=== PATIENT | male | born 1985 | race Caucasian/White ===

== ENCOUNTER 2021-02-14 15:50 | Emergency (ER) | payer BC ==
[2021-02-14] MEDS ORDERED: Sodium Chloride 0.9% 10 ML Syringe FLUSH PRN (16:22)
[2021-02-14] MEDS ORDERED: Acetaminophen 325 MG Tab PO STA (17:23)
[2021-02-14] MEDS ORDERED: Sodium Chloride 0.9% 1,000 ML IV ONE (17:36)
--- NOTE | 2021-02-14 17:43 | EDM.PDOC ---
ED HPI GENERAL MEDICAL PROBLEM - General Chief Complaint: Gastrointestinal Problem Stated Complaint: COVID + Time Seen by Provider: 02/14/21 15:58 Source of Information: Reports: Patient History Limitations: Reports: No Limitations - History of Present Illness INITIAL COMMENTS - FREE TEXT/NARRATIVE: The patient presents for rectal bleeding. The patient is COVID positive and he is here getting the monoclonal antibodies. He said this morning he had some lower abdominal cramping and then had some bloody diarrhea. He had that happen again here. He had COVID for 9 days now. He has a fever, chills, cough, shortness of breath, nausea and now diarrhea. He still has his appendix and gallbladder. Onset: Gradual Duration: Hour(s): Location: Reports: Abdomen Quality: Reports: Other (cramping) Severity: Moderate Improves with: Reports: None Worsens with: Reports: None Associated Symptoms: Reports: Chest Pain, Cough, Fever/Chills, Headaches, Nausea/Vomiting, Shortness of Breath Abdomen Pain Score (Numeric/FACES): 5 - Related Data Allergies Allergy/AdvReac Type Severity Reaction Status Date / Time tetracycline Allergy Other Verified 02/14/21 16:12 Home Meds: Home Meds Albuterol [Proventil HFA] 2 puff INH Q4H PRN #1 inhaler 02/14/21 [Rx] Escitalopram [Lexapro] 20 mg PO DAILY 02/14/21 [History] dexAMETHasone [Dexamethasone] 6 mg PO Q6H #12 tab 02/14/21 [Rx] Past Medical History - Past Health History Medical/Surgical History: Denies Medical/Surgical History - Infectious Disease History Infectious Disease History: Reports: Novel Coronavirus Social & Family History - Tobacco Use Tobacco Use Status *Q: Never Tobacco User Second Hand Smoke Exposure: No - Recreational Drug Use Recreational Drug Use: No ED ROS GENERAL - Review of Systems Review Of Systems: See Below Constitutional: Reports: Fever, Chills, Malaise, Weakness HEENT: Reports: No Symptoms Respiratory: Reports: Shortness of Breath, Cough Cardiovascular: Reports: No Symptoms Endocrine: Reports: Fatigue GI/Abdominal: Reports: Abdominal Pain, Bloody Stool, Nausea. Denies: Vomiting : Reports: No Symptoms Musculoskeletal: Reports: No Symptoms ED EXAM, GI/ABD - Physical Exam Exam: See Below Exam Limited By: No Limitations General Appearance: Alert, No Apparent Distress Ears: Normal External Exam Nose: Normal Inspection Head: Atraumatic, Normocephalic Neck: Normal Inspection Respiratory/Chest: No Respiratory Distress, Lungs Clear, Normal Breath Sounds Cardiovascular: Regular Rate, Rhythm, No Edema, No Murmur GI/Abdominal Exam: Soft, No Organomegaly, No Mass, Tender (Mild generalized tenderness) Rectal (Males) Exam: Bloody Stool Back Exam: Normal Inspection Extremities: Normal Inspection Course - Vital Signs Last Recorded V/S: Last Vital Signs Temp 97.8 F 02/14/21 17:29 Pulse 64 02/14/21 15:57 Resp 16 02/14/21 15:57 BP 115/74 02/14/21 15:57 Pulse Ox 98 02/14/21 15:57 - Orders/Labs/Meds Orders: Active Orders 24 hr Category Date Time Status Peripheral IV Care [RC] . DIRECTED Care 02/14/21 16:27 Active C DIFFICILE PCR W/REFLEX [MOLEC] Stat Lab 02/14/21 19:07 Received STOOL CULTURE/SHIGA TOXIN [MREF] Stat Lab 02/14/21 19:07 Received Sodium Chloride 0.9% [Saline Flush] Med 02/14/21 16:22 Active 10 ml FLUSH ASDIRECTED PRN Peripheral IV Insertion Adult [OM.PC] Stat Oth 02/14/21 16:22 Ordered Medication Orders Sodium Chloride (Sodium Chloride 0.9% 10 Ml Syringe) 10 ml FLUSH ASDIRECTED PRN PRN Reason: Keep Vein Open Last Admin: 02/14/21 16:40 Dose: 10 ml Documented by: IMELDA Labs: Laboratory Tests 02/14/21 02/14/21 02/14/21 Range/Units 17:00 17:00 17:00 WBC 4.91 (4.23-9.07) K/mm3 RBC 5.72 (4.63-6.08) M/mm3 Hgb 16.6 (13.7-17.5) gm/dl Hct 50.4 (40.1-51.0) % MCV 88.1 (79.0-92.2) fl MCH 29.0 (25.7-32.2) pg MCHC 32.9 (32.2-35.5) g/dl RDW Std Deviation 45.4 H (35.1-43.9) fL Plt Count 191 (163-337) K/mm3 MPV 9.5 (9.4-12.3) fl Neut % (Auto) 67.8 (34.0-67.9) % Lymph % (Auto) 23.2 (21.8-53.1) % Andrew % (Auto) 8.4 (5.3-12.2) % Eos % (Auto) 0 L (0.8-7.0) Baso % (Auto) 0.4 (0.1-1.2) % Neut # (Auto) 3.33 (1.78-5.38) K/mm3 Lymph # (Auto) 1.14 L (1.32-3.57) K/mm3 Andrew # (Auto) 0.41 (0.30-0.82) K/mm3 Eos # (Auto) 0.00 L (0.04-0.54) K/mm3 Baso # (Auto) 0.02 (0.01-0.08) K/mm3 PT 10.3 (9.7-12.0) SECONDS INR 0.93 APTT 31.2 (21.7-31.4) SECONDS Sodium 143 (136-145) mEq/L Potassium 3.7 (3.5-5.1) mEq/L Chloride 104 (98-107) mEq/L Carbon Dioxide 27 (21-32) mEq/L Anion Gap 15.7 H (5-15) BUN 12 (7-18) mg/dL Creatinine 1.1 (0.7-1.3) mg/dL Est Cr Clr Drug Dosing TNP Estimated GFR (MDRD) > 60 (>60) mL/min BUN/Creatinine Ratio 10.9 L (14-18) Glucose 91 (70-99) mg/dL Calcium 8.2 L (8.5-10.1) mg/dL Total Bilirubin 0.4 (0.2-1.0) mg/dL AST 80 H (15-37) U/L ALT 62 (16-63) U/L Alkaline Phosphatase 34 L (46-116) U/L Total Protein 7.9 (6.4-8.2) g/dl Albumin 3.5 (3.4-5.0) g/dl Globulin 4.4 gm/dL Albumin/Globulin Ratio 0.8 L (1-2) Meds: Medications Generic Name Dose Route Start Last Admin Trade Name Bubba PRN Reason Stop Dose Admin Sodium Chloride 10 ml 02/14/21 16:22 02/14/21 16:40 Sodium Chloride 0.9% 10 Ml Syringe FLUSH 10 ml ASDIRECTED PRN Administration Keep Vein Open Discontinued Medications Generic Name Dose Route Start Last Admin Trade Name Bubba PRN Reason Stop Dose Admin Acetaminophen 975 mg 02/14/21 17:23 02/14/21 17:29 Acetaminophen 325 Mg Tab PO 02/14/21 17:24 975 mg NOW STA Administration Diatrizoate Meglum/Diatrizoate Sod 90 ml 02/14/21 18:24 02/14/21 18:25 Diatrizoate Meglumine/Diatrizoate Sodium 37% 120 Ml Bottle PO 02/14/21 18:25 90 ml ONETIME ONE Administration Sodium Chloride 1,000 mls @ 1,000 mls/hr 02/14/21 17:36 02/14/21 17:55 Normal Saline IV 02/14/21 18:35 1,000 mls/hr ONETIME ONE Administration Iopamidol 100 ml 02/14/21 18:24 02/14/21 18:25 Iopamidol 612 Mg/Ml 100 Ml Bottle IVPUSH 02/14/21 18:25 100 ml ONETIME ONE Administration - Re-Assessments/Exams Free Text/Narrative Re-Assessment/Exam: 02/14/21 17:44 I ordered an IV NS 1L bolus, labs, and a CT of his abdomen and pelvis. His CBC looks good. His PT and PTT look good. His anion gap is elevated at 15.7. His AST is elevated at 80. 02/14/21 19:[address] shows diffuse increased density within both lung bases compatible with COVID pneumonia. Two small low density lesions within the liver which are too small to accurately measure but most likely are due to small cysts. Findings suspicious for mild diffuse colitis. Etiology is otherwise nonspecific. Small fat-containing partial inguinal hernias. No additional abnormality is seen on CT study of the abdomen and pelvis. The patient was able to give us a stool sample. I will check it for C-dif and culture. 02/14/21 19:19 I will get him on some steroids and discharge him home. Departure - Departure Time of Disposition: 19:20 Disposition: Home, Self-Care 01 Condition: Good Clinical Impression: COVID-19, Pneumonia due to COVID-19 virus, Colitis, Bloody stools - Discharge Information *PRESCRIPTION DRUG MONITORING PROGRAM REVIEWED*: Not Applicable *COPY OF PRESCRIPTION DRUG MONITORING REPORT IN PATIENT JAKUB: Not Applicable Prescriptions: dexAMETHasone [Dexamethasone] 6 mg PO Q6H #12 tab Albuterol [Proventil HFA] 2 puff INH Q4H PRN #1 inhaler PRN Reason: Shortness Of Breath Referrals: Pauline Franco [employer] [Primary Care Provider] - 1 Week Forms: ED Department Discharge Additional Instructions: Drink plenty of fluids. Take tylenol as needed for fever. Take the dexamethasone 1.5pills by mouth daily until gone. Use the albuterol inhaler 2 puffs every 6 hours as needed for shortness of breath. Try to lay on your stomach. That allows more of your lung tissue to get oxygenated. Please return if you are worse such as more bloody stools, oxygen saturations less then 90% consistently over a few hours, if you cannot keep anything down or for any other issues. Follow up with Pauline within a week. Sepsis Event Note (ED) - Evaluation Sepsis Screening Result: No Definite Risk - Focused Exam Vital Signs: Vital Signs Temp Temp Pulse Resp BP Pulse Ox 02/14/21 17:29 97.8 F 02/14/21 15:57 98.3 F 64 16 115/74 98 - My Orders Last 24 Hours: My Active Orders 02/14/21 16:22 Sodium Chloride 0.9% [Saline Flush] 10 ml FLUSH ASDIRECTED PRN Peripheral IV Insertion Adult [OM.PC] Stat 02/14/21 16:27 Peripheral IV Care [RC] . DIRECTED 02/14/21 19:07 C DIFFICILE PCR W/REFLEX [MOLEC] Stat STOOL CULTURE/SHIGA TOXIN [MREF] Stat - Assessment/Plan Last 24 Hours: My Active Orders 02/14/21 16:22 Sodium Chloride 0.9% [Saline Flush] 10 ml FLUSH ASDIRECTED PRN Peripheral IV Insertion Adult [OM.PC] Stat 02/14/21 16:27 Peripheral IV Care [RC] . DIRECTED 02/14/21 19:07 C DIFFICILE PCR W/REFLEX [MOLEC] Stat STOOL CULTURE/SHIGA TOXIN [MREF] Stat
[2021-02-14] MEDS ORDERED: Diatrizoate Meglumine/Diatrizoate Sodium 37% 120 ML Bottle PO ONE (18:24)
[2021-02-14] MEDS ORDERED: Iopamidol 612 MG/ML 100 ML Bottle IVPUSH ONE (18:24)
--- NOTE | 2021-02-14 18:48 | CT ---
CT abdomen and pelvis Technique: Multiple axial sections were obtained from above the dome of the diaphragm inferiorly through the pubic sepsis. Intravenous and oral contrast were utilized. Delayed images were also obtained through the abdomen and pelvis. Reconstructed coronal and sagittal images were also obtained. Comparison: No previous abdominal or pelvic imaging is available. Findings: Patchy areas of increased density are seen within both lung bases. Low density finding is seen in 2 locations within the right lobe of the liver. These are too small to accurately measure but most likely are due to cysts. Largest finding measures 1.1 cm. Spleen size is normal. Adrenal glands show no nodule. Gallbladder contains no calcified gallstones. Pancreas shows no discrete abnormality. Kidneys show symmetric contrast enhancement with no hydronephrosis or mass. Abdominal aorta shows no aneurysm. No retroperitoneal adenopathy or mesenteric abnormalities are seen. No pelvic mass or adenopathy is seen. Appendix is seen and is normal in size. Delayed images show contrast excretion into both ureters and into the bladder. Small fat-containing partial inguinal hernias are seen. There is diffuse material being seen throughout the colon. Colonic wall is felt to be slightly thickened raising the possibility of mild diffuse colitis. Bone window settings were reviewed which appear within normal limits for the patient's age. Impression: 1. Diffuse increased density within both lung bases compatible with COVID pneumonia. 2. Two small low-density lesions within the liver which are too small to accurately measure but most likely are due to small cysts. 3. Findings suspicious for mild diffuse colitis. Etiology is otherwise nonspecific. 4. Small fat-containing partial inguinal hernias. 5. No additional abnormality is seen on CT study of the abdomen and pelvis. Diagnostic code #3
== END 2021-02-14 19:40 | disposition home or self-care (01) ==
LOC: JD.ED 15:50
DX: U07.1 COVID-19 (principal); J12.82 Pneumonia due to coronavirus disease 2019; K52.9 Noninfective gastroenteritis and colitis, unspecified; Z88.1 Allergy status to other antibiotic agents
CPT/HCPCS: 36415; 74177; 80053; 85025; 85610; 85730; 87045; 87046; 87493; 87899; 99285; A9270; J7030; Q9963; Q9967

== ENCOUNTER 2022-08-03 19:34 | Observation (INO) | payer BC ==
[2022-08-03] MEDS ORDERED: Ondansetron 4 MG/2 ML SDV IVPUSH ONE (20:10)
[2022-08-03] MEDS ORDERED: Lactated Ringers 1,000 ML IV ONE ×2 (20:11→20:49)
[2022-08-03 21:12] LABS: CORONAVIRUS COVID-19 NAA NEGATIVE (NEGATIVE)
[2022-08-03] MEDS ORDERED: Pantoprazole 40 MG Vial IVPUSH ONE (21:56)
[2022-08-03] MEDS ORDERED: Famotidine 20 MG/2 ML SDV IVPUSH ONE (21:56)
[2022-08-03] MEDS ORDERED: Alum Hydrox/Mag Hydrox/Simeth 30 ML, Lidocaine 2% 15 ML PO ONE ×2 (21:57)
[2022-08-03] MEDS ORDERED: Piperacillin/Tazobactam 4.5 GM in Sodium Chloride 0.9% 100 ML IV ONE (22:12)
[2022-08-03] MEDS ORDERED: Lactated Ringers 1,000 ML IV SCH (22:45)
[2022-08-04] MEDS: Lactated Ringers 1,000 ML IV SCH ×2 (01:12→16:49)
[2022-08-04] MEDS: Acetaminophen 325 MG Tab PO PRN ×2 (04:38→15:58)
[2022-08-04] MEDS: Piperacillin/Tazobactam 4.5 GM in Sodium Chloride 0.9% 100 ML IV SCH ×3 (05:19→21:13)
[2022-08-04] MEDS: Famotidine 20 MG/2 ML SDV IVPUSH SCH ×2 (08:24→21:03)
[2022-08-04] MEDS: Pantoprazole 40 MG Vial IVPUSH SCH (08:25)
[2022-08-04] MEDS ORDERED: Pantoprazole 40 MG in Sodium Chloride 0.9% 100 ML IV SCH (09:00)
[2022-08-04] MEDS: Ibuprofen 600 MG Tab PO PRN ×2 (09:45→21:02)
[2022-08-04] MEDS ORDERED: Lactated Ringers 500 ML IV ONE ×2 (15:01→16:33)
[2022-08-04] MEDS ORDERED: Citalopram 20 MG Tab PO SCH (21:00)
[2022-08-04] MEDS: ESCITALOPRAM 20 MG PO SCH (21:03)
[2022-08-05] MEDS: Lactated Ringers 1,000 ML IV SCH ×4 (01:11→22:23)
[2022-08-05] MEDS ORDERED: Sodium Chloride 0.9% 100 ML ONE ×3 (05:44→20:58)
[2022-08-05] MEDS: Piperacillin/Tazobactam 4.5 GM in Sodium Chloride 0.9% 100 ML IV SCH ×3 (05:51→21:08)
[2022-08-05] MEDS: Pantoprazole 40 MG Vial IVPUSH SCH (08:48)
[2022-08-05] MEDS: Famotidine 20 MG/2 ML SDV IVPUSH SCH ×2 (08:48→21:08)
[2022-08-05] MEDS ORDERED: Citalopram 20 MG Tab PO SCH (09:00)
[2022-08-05] MEDS: Acetaminophen 325 MG Tab PO PRN ×2 (13:23→19:18)
[2022-08-05] MEDS ORDERED: Loperamide 2 MG Cap PO PRN (13:36)
[2022-08-05] MEDS: ESCITALOPRAM 20 MG PO SCH (21:11)
[2022-08-05] MEDS: Ibuprofen 600 MG Tab PO PRN (21:12)
[2022-08-06] MEDS ORDERED: Sodium Chloride 0.9% 100 ML ONE (05:05)
[2022-08-06] MEDS: Piperacillin/Tazobactam 4.5 GM in Sodium Chloride 0.9% 100 ML IV SCH (05:36)
[2022-08-06] MEDS: Lactated Ringers 1,000 ML IV SCH (05:36)
== END 2022-08-06 09:13 | disposition home or self-care (01) ==
LOC: JD.ED 19:34 → JD.MS 08-04 00:17
PROVIDERS: ADMIT Internal Medicine; ATTEND Internal Medicine
DX: A41.9 Sepsis, unspecified organism (principal); R50.81 Fever presenting with conditions classified elsewhere; K52.9 Noninfective gastroenteritis and colitis, unspecified; D72.825 Bandemia; F32.A Depression, unspecified; J44.9 Chronic obstructive pulmonary disease, unspecified; F41.9 Anxiety disorder, unspecified; Z88.1 Allergy status to other antibiotic agents; Z20.822 Contact with and (suspected) exposure to COVID-19; Z79.899 Other long term (current) drug therapy
CPT/HCPCS: 0241U; 36415; 71045; 71045-26; 74177; 74177-26; 80048; 80053; 81003; 83605; 83630; 85025; 85610; 85730; 87040; 87045; 87046; 87899; 93005; 96361; 96365; 96366; 96375; 96376; 99285-25; A9270-GY; C9113; G0378; J2405; J2543; J3490; J7120

== ENCOUNTER 2023-03-11 06:15 | Day surgery (SDC) | payer BC ==
[~2023-03-11 06:15] MED LIST: Bupivacaine 0.25% 10 ML SDV ONE; Lidocaine 1% 10 ML MDV ONE; Midazolam 1 MG/ML 2 ML SDV ONE; Propofol 200 MG/20 ML SDV ONE; Triamcinolone Acetonide 40 MG/ML 1 ML SDV ONE; fentaNYL 100 MCG/2 ML SDV ONE
[2023-03-11] MEDS ORDERED: Ondansetron 4 MG/2 ML SDV ONE (06:17)
== END 2023-03-11 07:29 | disposition home or self-care (01) ==
LOC: JD.SDS 06:15
PROVIDERS: ATTEND Orthopaedic Surgery
DX: G56.13 Other lesions of median nerve, bilateral upper limbs (principal); F41.9 Anxiety disorder, unspecified; F32.A Depression, unspecified; Z86.16 Personal history of COVID-19; Z79.899 Other long term (current) drug therapy; Z88.8 Allergy status to other drugs, medicaments and biological substances
CPT/HCPCS: 20526; 64721; J3301; J3490; J2250; J2405; J2704; J3010